=== PATIENT | male | born 1955 | race Caucasian/White ===

== ENCOUNTER → 2021-12-23 | Outpatient (CLI) | payer MEDICARE | LOC: M.ULTRA 09:34 | PROVIDERS: ATTEND Nurse Practitioner Family | DX: I82.411 Acute embolism and thrombosis of right femoral vein (principal); I82.431 Acute embolism and thrombosis of right popliteal vein; I82.441 Acute embolism and thrombosis of right tibial vein; I82.451 Acute embolism and thrombosis of right peroneal vein ==

== ENCOUNTER 2022-01-06 09:53 | Inpatient (IN) | payer MEDICARE ==
[~2022-01-06] VITALS: Ht 190.5 cm; Wt 104.3 kg
[2022-01-06 09:59] VITALS: BP 153/75
[2022-01-06 10:20] LABS: HEMOGLOBIN 14.5 gm/dL (14.0-18.0); MCH 30.8 pg (26.0-34.0); MCHC 33.1 g/dL (28.0-37.0); MCV 93.1 fL (80.0-100.0); MPV 9.4 fl. (7.2-11.1); NUCLEATED RBCS 0 /100WBC; PLATELET COUNT* 314 thou/uL (150-400); RBC 4.72 mil/uL (4.50-6.00); RDW-CV 12.4 % (10.5-14.5); WBC 14.6 thou/uL (4.0-11.0)
[2022-01-06 10:24] LABS: CALCIUM 8.8 mg/dL (8.5-10.1); CREATININE 0.9 mg/dL (0.6-1.3)
[2022-01-06 10:29] LABS: ALBUMIN 3.2 g/dL (3.4-5.0); TOTAL BILIRUBIN 0.5 mg/dL (<0.1-1.0); TOTAL PROTEIN 7.5 g/dL (6.4-8.2)
[2022-01-06 11:10] LABS: ABSOLUTE LYMPHOCYTES 1.6 thou/uL (0.8-5.3); ABSOLUTE MONOCYTES 0.9 thou/uL (0.0-1.2); ABSOLUTE NEUTROPHILS 12.1 thou/uL (1.6-8.1); PLATELET ESTIMATE ADEQUATE
[2022-01-06 11:12] LABS: APTT 28.8 Seconds (25.0-31.3); INR 1.2; PROTIME 12.2 Seconds (9.20-11.50)
--- NOTE | 2022-01-06 11:27 | EKG ---
[place] [address] ELECTROCARDIOGRAM REPORT Name: TERESACATHERINE Room: [facility]#: [id number] Admission: 01/06/22 Attend Phys: Discharge: Date of : 53 Date of Service: 01/06/22 1039 Report #: [id number] THIS REPORT FOR: //name// [facility] ED Test Date: 2022-01-06 Test Time: 10:39:59 Pat Name: CATHERINE MOORE Department: Room: Gender: Director Digital: [facility] : 1955 Requested By: Mary Jo Coreas Order Number: [id number] MD: Shad Reynoso Measurements Intervals [place] Rate: 60 P: 0 OR: 55 QRS: -56 QRSD: 171 T: 114 QT: 470 QTc: 470 Interpretive Statements Ventricular-paced rhythm No further analysis attempted due to paced rhythm Compared to ECG 11/02/2006 10:59:07 Atrial fibrillation no longer present Rhythm is exclusively paced Electronically Signed On 01-06-2022 11:27:14 FLOOR AND WALL APPLIER LIQUID by Shad Reynoso [email or web address] <ELECTRONICALLY SIGNED> By: Shad Reynoso MD, [facility] 01/06/22 1127 1039 1039 Shad Reynoso MD, [facility] /EPI
[2022-01-06 13:00] VITALS: BP 170/80
[2022-01-06] MEDS ORDERED: CARVEDILOL12.5 MG PO (16:28)
[2022-01-06] MEDS ORDERED: COZAAR 50 MG TA50 M1 PO (16:28)
[2022-01-06] MEDS ORDERED: FUROSEMIDE 40 M40 M1 PO (16:29)
[2022-01-06 17:00] VITALS: BP 174/83
--- NOTE | 2022-01-06 18:50 | NUR ---
SPOKE WITH PHARMACY REGARDING VANCOMYCIN. PER PHARMACY, GIVE VANCOMYCIN AT 1900 AND 2100 BECAUSE PT NEEDS 2G LOADING DOSE BASED ON WEIGHT.
[2022-01-06 21:00] VITALS: BP 179/86
[2022-01-06 23:55] VITALS: BP 179/86
[2022-01-07] VITALS (13 sets, daily range): BP systolic 127–194; BP diastolic 53–89
--- NOTE | 2022-01-07 06:30 | NUR ---
PT TO ROOM AT 0020. PICTURES TAKEN OF RT FOOT. AREA RED, INFLAMMED AND LITTLE TOE WITH DRAINAGE AREA. REFUSING TO ELEVATE. STANDS TO VOID. IV PAIN MED GIVEN X1 WITH RELIEF. NPO FOR PROCEDURE THIS AM.
[2022-01-07 07:27] LABS: CALCIUM 8.4 mg/dL (8.5-10.1); CREATININE 0.9 mg/dL (0.6-1.3); POTASSIUM 3.9 mmol/L (3.5-5.1)
[2022-01-07 07:30] LABS: MAGNESIUM 2.3 mg/dL (1.8-2.4); PHOSPHORUS* 2.7 mg/dL (2.5-4.9)
--- NOTE | 2022-01-07 15:31 | NUR ---
CM ASSESSMENT ASSESSMENT COMPLETED WITH PT WHO WAS ALERT AND ORIENTED. PT LIVES ALONE IN SINGLE STORY HOME. PT IND WITH ADLS. PT DOES NOT USE ANY DME OR HOME 02. PT HAS NO HX OF SNF, ARU, OR HH. PT REPORTS PCP IS "YMAIL" FROM [facility]. PT SEEKING TO DC HOME WHEN MED CLEAR WITH HH. CM TO FOLLOW.
[2022-01-07 18:25] LABS: ABSOLUTE EOSINOPHILS 0.2 thou/uL (0.0-0.7); ABSOLUTE LYMPHOCYTES 1.3 thou/uL (0.8-5.3); ABSOLUTE MONOCYTES 1.1 thou/uL (0.0-1.2); ABSOLUTE NEUTROPHILS 8.8 thou/uL (1.6-8.1); BASOPHILS 0.2 %; EOSINOPHILS 1.4 %; HEMATOCRIT 44.7 % (42.0-52.0); HEMOGLOBIN 14.7 gm/dL (14.0-18.0); LYMPHOCYTES 11.7 %; MCH 30.8 pg (26.0-34.0); MCV 93.6 fL (80.0-100.0); MONOCYTES 9.5 %; MPV 8.8 fl. (7.2-11.1); NUCLEATED RBCS 0 /100WBC; PLATELET COUNT* 305 thou/uL (150-400); POLYS 77.2 %; RBC 4.78 mil/uL (4.50-6.00); RDW-CV 12.6 % (10.5-14.5); WBC 11.4 thou/uL (4.0-11.0)
[2022-01-07 18:43] LABS: PROTIME 21.1 Seconds (9.20-11.50)
[2022-01-07 18:46] LABS: INR 2.1
[2022-01-07 18:56] LABS: APTT > 139.0 Seconds (25.0-31.3)
[2022-01-08 00:48] VITALS: BP 152/58
--- NOTE | 2022-01-08 02:04 | NUR ---
PT ALERT, ORIENTED, IMPULSIVE AND FORGETFUL AT TIMES. BED REST UNTIL 2100. HEPARIN QTT STARTED. NS RESTARTED PER MAR. IVORY WITH CLEAR YELLOW. MANAGER TRADE MARKETING TRACING AFIB WITH PVCS AND V-PACED.
[2022-01-08 02:06] LABS: GLYCOHEMOGLOBIN (HGB A1C) 6.2 % (4.8-5.6)
[2022-01-08 04:46] VITALS: BP 150/66
[2022-01-08 05:07] LABS: ABSOLUTE BASOPHILS 0.1 thou/uL (0.0-0.2); ABSOLUTE EOSINOPHILS 0.2 thou/uL (0.0-0.7); ABSOLUTE LYMPHOCYTES 1.9 thou/uL (0.8-5.3); ABSOLUTE MONOCYTES 0.9 thou/uL (0.0-1.2); ABSOLUTE NEUTROPHILS 7.2 thou/uL (1.6-8.1); BASOPHILS 0.8 %; EOSINOPHILS 2.4 %; HEMATOCRIT 40.8 % (42.0-52.0); HEMOGLOBIN 13.9 gm/dL (14.0-18.0); LYMPHOCYTES 18.4 %; MCH 31.5 pg (26.0-34.0); MCV 92.7 fL (80.0-100.0); MPV 8.7 fl. (7.2-11.1); NUCLEATED RBCS 0 /100WBC; PLATELET COUNT* 268 thou/uL (150-400); POLYS 69.4 %; RDW-CV 12.5 % (10.5-14.5); WBC 10.4 thou/uL (4.0-11.0)
[2022-01-08 09:00] VITALS: BP 113/67
[2022-01-08 12:00] VITALS: BP 94/44
--- NOTE | 2022-01-08 15:40 | NUR ---
PLAN OF CARE: PLAN FOR THE PT TO POSSIBLY D/C HOME WITH IV ABT'S AND HH PENDING ID CONSULT AND RECOMMENDATIONS, AND WHEN MEDICALLY STABLE. CM FAXED PT'S CLINCIAL INFO TO [employer] TO GET PT'S INSURANCE COVERAGE AND CO-PAY AMT FOR HOME IV ABT INFUSIONS. CM AWAITING A RETURN CALL FROM [employer]. CM WILL REMAIN AVAILABLE TO ASSIST AND FOLLOW NEEDED.
[2022-01-08 16:00] VITALS: BP 139/63
[2022-01-08 20:00] VITALS: BP 158/60
[2022-01-09 01:16] VITALS: BP 152/62
[2022-01-09 04:36] VITALS: BP 166/70
[2022-01-09 08:00] VITALS: BP 165/75
--- NOTE | 2022-01-09 11:17 | EKG ---
[place] [address] ELECTROCARDIOGRAM REPORT Name: CATHERINE MOORE Room: [address] ADM IN M.R.#: [id number] Admission: 01/06/22 Attend Phys: Brian Hinojosa Discharge: Date of : 53 Date of Service: 01/08/22 1226 Report #: [id number] THIS REPORT FOR: //name// [facility] Test Date: 2022-01-08 Test Time: 12:26:36 Pat Name: CATHERINE MOORE Department: Room: [address] Gender: M Plastics Factory Worker: ANDREEA : 1955 Requested By: Brian Hinojosa Order Number: [id number] MD: Shad Reynoso Measurements Intervals [place] Rate: 60 P: [place]: QRS: -56 QRSD: 170 T: 121 QT: 471 QTc: 471 Interpretive Statements Afib/flut and V-paced complexes; rare PVC is noted No further analysis attempted due to paced rhythm Compared to ECG 01/06/2022 10:39:59 Rare PVC is noted Electronically Signed On 01-09-2022 11:17:46 NURSE ADVISOR by Shad Reynoso [email or web address] <ELECTRONICALLY SIGNED> By: Shad Reynoso MD, [facility] 01/09/22 1117 1226 1226 Shad Reynoso MD, [facility] /EPI
[2022-01-09 12:00] VITALS: BP 153/66
[2022-01-09] MEDS ORDERED: OXYCODONE HCL 55 MG PO ×2 (12:14→12:21)
[2022-01-09] MEDS ORDERED: CEPHALEXIN500 MG PO ×2 (12:14→12:21)
[2022-01-09] MEDS ORDERED: XARELTO10 M1 PO (12:20)
--- NOTE | 2022-01-09 13:45 | NUR ---
PLAN OF CARE: PLAN FOR THE PT TO D/C HOME WITH SELF-CARE PENDING I.D. RECOMMENDAITONS. CM WILL REMAIN AVAILABLE TO ASSIST AND FOLLOW NEEDED.
--- NOTE | 2022-01-09 15:10 | NUR ---
Man catheter dc'd at 1330. PATIENT TOLERATED WELL. WILL REVIEW DISCHARGE INSTRUCTIONS WITH DAUGHTER IN LAW IN ROOM.
[2022-01-09 15:11] VITALS: BP 153/66
--- NOTE | 2022-01-09 16:06 | NUR ---
REVIEWED DISCHARGE INSTRUCTIONS WITH PATIENT AND FAMILY. VERBALIZED UNDERSTANDING. PATIENT LEAVES VIA WHEELCHAIR TO LOBBY IN STABLE CONDITION.
== END 2022-01-09 16:11 | disposition home or self-care (01) | DRG 271 ==
LOC: M.ERS 09:53 → M.TBA-ER 12:15 → M.2W 12:15
PROVIDERS: Radiology Diagnostic Radiology; Student in an Organized Health Care Education/Training Program; ADMIT Internal Medicine; ATTEND Internal Medicine
PROC: 04CK3ZZ Extirpation of Matter from Right Femoral Artery, Percutaneous Approach (ICD-10-PCS; principal; 2022-01-08)
PROC: B41G1ZZ Fluoroscopy of Left Lower Extremity Arteries using Low Osmolar Contrast (ICD-10-PCS; principal; 2022-01-08)
PROC: 047M3ZZ Dilation of Right Popliteal Artery, Percutaneous Approach (ICD-10-PCS; principal; 2022-01-08)
PROC: 047P3ZZ Dilation of Right Anterior Tibial Artery, Percutaneous Approach (ICD-10-PCS; principal; 2022-01-08)
PROC: B41F1ZZ Fluoroscopy of Right Lower Extremity Arteries using Low Osmolar Contrast (ICD-10-PCS; principal; 2022-01-08)
PROC: 04CP3ZZ Extirpation of Matter from Right Anterior Tibial Artery, Percutaneous Approach (ICD-10-PCS; principal; 2022-01-08)
PROC: 047K3ZZ Dilation of Right Femoral Artery, Percutaneous Approach (ICD-10-PCS; principal; 2022-01-08)
PROC: B4101ZZ Fluoroscopy of Abdominal Aorta using Low Osmolar Contrast (ICD-10-PCS; principal; 2022-01-08)
DX: I70.261 Atherosclerosis of native arteries of extremities with gangrene, right leg (principal); I82.411 Acute embolism and thrombosis of right femoral vein; R65.10 Systemic inflammatory response syndrome (SIRS) of non-infectious origin without acute organ dysfunction; E87.2 Acidosis; I48.20 Chronic atrial fibrillation, unspecified; E44.1 Mild protein-calorie malnutrition; I82.451 Acute embolism and thrombosis of right peroneal vein; I82.431 Acute embolism and thrombosis of right popliteal vein; I82.441 Acute embolism and thrombosis of right tibial vein; L03.031 Cellulitis of right toe; I77.1 Stricture of artery; I10 Essential (primary) hypertension; D72.829 Elevated white blood cell count, unspecified; R73.9 Hyperglycemia, unspecified; I25.10 Atherosclerotic heart disease of native coronary artery without angina pectoris; S90.821A Blister (nonthermal), right foot, initial encounter; Z20.822 Contact with and (suspected) exposure to COVID-19; Z68.28 Body mass index [BMI] 28.0-28.9, adult; I25.2 Old myocardial infarction; Z95.0 Presence of cardiac pacemaker; Z86.73 Personal history of transient ischemic attack (TIA), and cerebral infarction without residual deficits; X58.XXXA Exposure to other specified factors, initial encounter; Y93.89 Activity, other specified; Y92.89 Other specified places as the place of occurrence of the external cause; Y99.8 Other external cause status

== ENCOUNTER 2022-01-22 10:25 | Inpatient (IN) | payer MEDICARE ==
[~2022-01-22] VITALS: Ht 190.5 cm; Wt 104.3 kg
[~2022-01-22 10:25] MED LIST: CARVEDILOL12.5 MG PO; CEPHALEXIN500 MG PO; COZAAR 50 MG TA50 M1 PO; FUROSEMIDE 40 M40 M1 PO; OXYCODONE HCL 55 MG PO; XARELTO10 M1 PO
[2022-01-22 10:36] VITALS: BP 147/62
[2022-01-22 11:29] LABS: ABSOLUTE BASOPHILS 0.1 thou/uL (0.0-0.2); ABSOLUTE EOSINOPHILS 0.3 thou/uL (0.0-0.7); ABSOLUTE LYMPHOCYTES 1.7 thou/uL (0.8-5.3); ABSOLUTE NEUTROPHILS 7.6 thou/uL (1.6-8.1); BASOPHILS 0.9 %; EOSINOPHILS 3.1 %; HEMATOCRIT 38.6 % (42.0-52.0); LYMPHOCYTES 16.3 %; MCH 30.8 pg (26.0-34.0); MCHC 33.8 g/dL (28.0-37.0); MCV 91.1 fL (80.0-100.0); MONOCYTES 9.3 %; MPV 9.7 fl. (7.2-11.1); NUCLEATED RBCS 0 /100WBC; PLATELET COUNT* 287 thou/uL (150-400); POLYS 70.4 %; RBC 4.24 mil/uL (4.50-6.00); RDW-CV 12.6 % (10.5-14.5); WBC 10.7 thou/uL (4.0-11.0)
[2022-01-22 11:34] LABS: CREATININE 3.1 mg/dL (0.6-1.3); POTASSIUM 3.6 mmol/L (3.5-5.1)
[2022-01-22 11:37] LABS: APTT 35.7 Seconds (25.0-31.3); INR 1.5; PROTIME 15.2 Seconds (9.20-11.50)
[2022-01-22 11:39] LABS: TOTAL BILIRUBIN 0.8 mg/dL (<0.1-1.0); TOTAL PROTEIN 7.4 g/dL (6.4-8.2)
[2022-01-22 12:35] LABS: ESR (SEDRATE) 65 mm/hr (0-20)
--- NOTE | 2022-01-22 12:49 | EKG ---
[place] [address] ELECTROCARDIOGRAM REPORT Name: CATHERINE MOOREMOND Room: [place] [address] [facility]#: [id number] Admission: 01/22/22 Attend Phys: Mishel Celestin, Discharge: Date of : 53 Date of Service: 01/22/22 1120 Report #: [id number] THIS REPORT FOR: //name// [facility] ED Test Date: 2022-01-22 Test Time: 11:20:17 Pat Name: CATHERINE MOORE Department: Room: [facility] Gender: M Word Processor Operator: : 1955 Requested By: Mary Jo Coreas Order Number: [id number] MD: Shad Reynoso Measurements Intervals [place] Rate: 60 P: 0 VA: 65 QRS: -52 QRSD: 173 T: 107 QT: 517 QTc: 517 Interpretive Statements Ventricular-paced rhythm No further analysis attempted due to paced rhythm Compared to ECG 01/08/2022 12:26:36 Ventricular premature complex(es) no longer present Electronically Signed On 01-22-2022 12:49:38 ELEVATOR SUPERVISOR by Shad Reynoso [email or web address] <ELECTRONICALLY SIGNED> By: Shad Reynoso MD, [facility] 01/22/22 1249 1120 1120 Shad Reynoso MD, [facility] /EPI
[2022-01-22 14:13] VITALS: BP 147/64
[2022-01-22 14:27] LABS: CALCIUM 8.5 mg/dL (8.5-10.1); CREATININE 2.9 mg/dL (0.6-1.3); POTASSIUM 3.5 mmol/L (3.5-5.1)
[2022-01-22 14:35] VITALS: BP 158/75
--- NOTE | 2022-01-22 15:34 | 2DMMODE ---
[place] [address] 2 D/M-MODE ECHOCARDIOGRAM Name: CATHERINE MOORE Room: [address] IN [facility]#: [id number] Admission: 01/22/22 Attend Phys: Mishel Celestin, Discharge: Date of : 53 Date of Service: 01/22/22 1534 Report #: [id number] THIS REPORT FOR: cc: Taylor English NP, Elizabeth NP Holkins,Shad Cervantes MD [facility] ~ APPROVED REPORT Study performed: 01/22/2022 15:01:14 EXAM: Comprehensive 2D, Doppler, and color-flow Echocardiogram Patient Location: In-Patient Room #: [facility] Status: routine BSA: 2.29 HR: 60 bpm BP: 147/64 mmHg Rhythm: NSR Other Information Study Quality: Good Indications CAD 2D Dimensions IVSd: 14.16 (7-11mm) LVOT Diam: 22.92 (18-24mm) LVDd: 45.16 mm PWd: 12.33 (7-11mm) Ascending Ao: 33.64 (22-36mm) LVDs: 22.93 (25-40mm) Aortic Root: 35.56 mm Volumes Left Atrial Volume (Systole) LA ESV Index: 68.40 mL/m2 Aortic Valve AoV Peak Gordo.: 1.41 m/s AO Peak Gr.: 7.90 mmHg LVOT Max P.86 mmHg AO Mean Gr.: 4.68 mmHg LVOT Mean P.12 mmHg LVOT Max V: 1.10 m/s AO V2 VTI: 24.73 cm LVOT Mean V: 0.65 m/s NADYA (VTI): 3.19 cm2 LVOT V1 VTI: 19.10 [place] [address] 2 D/M-MODE ECHOCARDIOGRAM Name: CATHERINE MOORE Room: [address] IN ..#: [id number] Admission: 01/22/22 Attend Phys: Mishel Celestin, Discharge: Date of : 53 Date of Service: 01/22/22 1534 Report #: [id number] TDI Medial E' Gordo.: 0.10 m/s Lateral E' Gordo.: 0.11 m/s Pulmonary Valve PV Peak Gordo.: 1.08 m/s PV Peak Gr.: 4.63 mmHg Tricuspid Valve RAP Estimate: 5.00 mmHg TR Peak Gr.: 27.62 mmHg RVSP: 32.00 mmHg PA Pressure: 32.00 mmHg Left Ventricle The left ventricle is normal size. There is normal LV segmental wall motion. Mild concentric left ventricular hypertrophy. Left ventricular systolic function is normal. The left ventricular ejection fraction is within the normal range. LVEF is 60-65%. This study is not technically sufficient to allow evaluation of the LV diastolic function. Right Ventricle Right ventricle is mildly dilated. The right ventricular systolic function is normal. Right heart pacing catheter is noted Atria Left atrium is moderately dilated. Right atrium is mildly dilated. Aortic Valve Mild aortic valve sclerosis. Trace aortic regurgitation. There is no aortic valvular stenosis. Mitral Valve Mild mitral annular calcification. Trace mitral regurgitation. No evidence of mitral valve stenosis. Tricuspid Valve The tricuspid valve is normal in structure. Trace tricuspid regurgitation. Mild pulmonary hypertension. Pulmonic Valve The pulmonary valve is normal in structure. There is no pulmonic valvular regurgitation. Great Vessels The aortic root is normal in size. IVC is [place] [address] 2 D/M-MODE ECHOCARDIOGRAM Name: TERESACATHERINE Room: [address] IN [facility]#: [id number] Admission: 01/22/22 Attend Phys: Mishel Celestin, Discharge: Date of : 53 Date of Service: 01/22/22 1534 Report #: [id number] collapses >50% with inspiration. Pericardium There is no pericardial effusion. <Conclusion> The left ventricle is normal size. Mild concentric left ventricular hypertrophy. Left ventricular systolic function is normal. The left ventricular ejection fraction is within the normal range. LVEF is 60-65%. Right ventricle is mildly dilated. Left atrium is moderately dilated. Right atrium is mildly dilated. Mild aortic valve sclerosis. Trace aortic regurgitation. There is no aortic valvular stenosis. Mild mitral annular calcification. Trace mitral regurgitation. The tricuspid valve is normal in structure. Trace tricuspid regurgitation. Mild pulmonary hypertension. IVC is normal in size and collapses >50% with inspiration. There is no pericardial effusion. There is normal LV segmental wall motion. Right heart pacing catheter is noted <ELECTRONICALLY SIGNED> By: Shad Reynoso MD, [facility] 01/22/22 1534 1534 1534 Shad Reynoso MD, [facility] /INF
[2022-01-22 20:00] VITALS: BP 139/55
[2022-01-23] VITALS: BP 133/64
[2022-01-23 02:06] LABS: GLYCOHEMOGLOBIN (HGB A1C) 6.2 % (4.8-5.6)
[2022-01-23 04:57] LABS: HEMATOCRIT 38.6 % (42.0-52.0); HEMOGLOBIN 12.7 gm/dL (14.0-18.0); MCH 30.6 pg (26.0-34.0); MCHC 32.8 g/dL (28.0-37.0); MCV 93.5 fL (80.0-100.0); MPV 10.3 fl. (7.2-11.1); RBC 4.13 mil/uL (4.50-6.00); RDW-CV 12.9 % (10.5-14.5); WBC 10.7 thou/uL (4.0-11.0)
[2022-01-23 05:28] LABS: ALBUMIN 2.7 g/dL (3.4-5.0); CALCIUM 8.8 mg/dL (8.5-10.1); CREATININE 2.7 mg/dL (0.6-1.3); POTASSIUM 4.3 mmol/L (3.5-5.1); TOTAL BILIRUBIN 0.7 mg/dL (<0.1-1.0); TOTAL PROTEIN 7.1 g/dL (6.4-8.2)
--- NOTE | 2022-01-23 09:32 | EKG ---
[place] [address] ELECTROCARDIOGRAM REPORT Name: CATHERINE MOORE HELEN Room: [address] ADM IN M.R.#: [id number] Admission: 01/22/22 Attend Phys: Mishel Celestin, Discharge: Date of : 53 Date of Service: 01/23/2219 Report #: [id number] THIS REPORT FOR: //name// [facility] [place] [facility] Test Date: 2022-01-23 Test Time: 07:19:06 Pat Name: CATHERINE MOORE Department: Room: [address] Gender: M Architectural Intern: : 1955 Requested By: Bhavesh Sharp Order Number: [id number] MD: Shad Reynoso Measurements Intervals [place] Rate: 60 P: [place]: QRS: -48 QRSD: 182 T: 115 QT: 471 QTc: 471 Interpretive Statements Afib and V-paced complexes No further analysis attempted due to paced rhythm Compared to ECG 01/22/2022 11:20:17 No significant changes Electronically Signed On 01-23-2022 9:32:10 WORM PICKER by Shad Reynoso [email or web address] <ELECTRONICALLY SIGNED> By: Shad Reynoso MD, [facility] 01/23/22 0932 8 8 Shad Reynoso MD, [facility] /EPI
[2022-01-23 12:25] VITALS: BP 116/65
[2022-01-23 17:45] VITALS: BP 165/72
[2022-01-23 21:40] VITALS: BP 178/74
[2022-01-24] VITALS (7 sets, daily range): BP systolic 133–185; BP diastolic 67–79
[2022-01-24 05:04] LABS: CALCIUM 8.6 mg/dL (8.5-10.1); CREATININE 2.3 mg/dL (0.6-1.3); POTASSIUM 3.5 mmol/L (3.5-5.1)
--- NOTE | 2022-01-24 08:54 | CON ---
[address] [address] CONSULTATION Name: CATHERINE MOORE Room: [address] IN .R.#: [id number] Admission: 01/22/22 Attend Phys: Mishel Celestin MD Discharge: Date of : 53 Report #: [id number] THIS REPORT FOR: cc: Taylor English NP, Elizabeth NP Arakelov, Alexandr V. MD ~ DATE OF CONSULTATION: 01/23/2022 REQUESTING PHYSICIAN: Fawad. REASON FOR CONSULTATION: Acute kidney injury. HISTORY OF PRESENT ILLNESS: The patient is a 66-year-old gentleman admitted to the hospital on 01/22/2022 with progressive problem gangrene of the right foot cellulitis. He was examined by specialists and plan is probably to proceed with surgery with amputation of some toes of the right foot. I was consulted because his creatinine went upto 3.1, and it was normal in the past. PAST MEDICAL HISTORY: Chronic atrial fibrillation, peripheral artery disease, hypertension, coronary artery disease. SOCIAL HISTORY: Tobaccoism in the past. FAMILY HISTORY: Negative for renal disease. MEDICATIONS: Prior to admission included Coreg and losartan. Here in the hospital, he is on vancomycin and Coreg. His losartan was appropriately stopped. REVIEW OF SYSTEMS: Positive for some discomfort in his right foot. Denies shortness of breath. Denies nausea, vomiting, diarrhea or constipation. PHYSICAL EXAMINATION: GENERAL: Awake, alert, oriented, very pleasant gentleman in no acute distress. VITAL SIGNS: Blood pressure 110/68, heart rate 61 and irregular, respirations 19, temperature 37.1 Celsius. HEENT: Pupils are round. NECK: Supple. Skin is dry. LUNGS: Clear to auscultation bilaterally. CARDIOVASCULAR: Irregular rate. ABDOMEN: Soft. EXTREMITIES: His right foot is dressed. LABORATORY DATA: Significant for creatinine 2.7 today, down from 3.1 on admission. Potassium 4.3[place] [address] CONSULTATION Name: CATHERINE MOORE Room: [address] IN [facility]#: [id number] Admission: 01/22/22 Attend Phys: Mishel Celestin MD Discharge: Date of : 53 Report #: [id number] ASSESSMENT: 1. Acute kidney injury, likely due to infection. 2. Right foot cellulitis with some gangrene and no flow to his right foot. 3. Atrial fibrillation. 4. History of hypertension. PLAN: 1. Agree with stopping losartan. 2. Agree with IV fluids. Overall, his renal functions are slowly improving at this point, we will monitor labs and avoid nephrotoxins. <ELECTRONICALLY SIGNED> By: Austen Berg MD 01/24/22 0854 1038 1432Alexandr Jimy Berg MD /nt
[2022-01-24 18:31] LABS: URINE BILIRUBIN NEGATIVE (Negative); URINE BLOOD NEGATIVE (Negative); URINE CLARITY CLEAR; URINE COLOR YELLOW; URINE GLUCOSE-RANDOM NEGATIVE (Negative); URINE KETONES NEGATIVE (Negative); URINE LEUKOCYTES-REFLEX NEGATIVE (Negative); URINE NITRITE-REFLEX NEGATIVE (Negative); URINE PROTEIN NEGATIVE (Negative); URINE SPECIFIC GRAVITY 1.025 (1.005-1.030); URINE UROBILINOGEN 0.2 E.U./dl (0.2-1.0)
[2022-01-25] VITALS: BP 162/71
[2022-01-25 04:51] VITALS: BP 181/76
[2022-01-25 07:45] VITALS: BP 204/77
[2022-01-25 11:46] VITALS: BP 169/78
[2022-01-25 11:53] LABS: ABSOLUTE BASOPHILS 0.1 thou/uL (0.0-0.2); ABSOLUTE EOSINOPHILS 0.4 thou/uL (0.0-0.7); ABSOLUTE LYMPHOCYTES 1.4 thou/uL (0.8-5.3); ABSOLUTE MONOCYTES 0.7 thou/uL (0.0-1.2); ABSOLUTE NEUTROPHILS 5.7 thou/uL (1.6-8.1); BASOPHILS 0.8 %; EOSINOPHILS 5.2 %; HEMATOCRIT 34.5 % (42.0-52.0); HEMOGLOBIN 11.6 gm/dL (14.0-18.0); LYMPHOCYTES 16.4 %; MCH 30.6 pg (26.0-34.0); MCHC 33.6 g/dL (28.0-37.0); MCV 91.1 fL (80.0-100.0); MONOCYTES 8.8 %; MPV 10.2 fl. (7.2-11.1); NUCLEATED RBCS 0 /100WBC; PLATELET COUNT* 227 thou/uL (150-400); POLYS 68.8 %; RBC 3.78 mil/uL (4.50-6.00); WBC 8.3 thou/uL (4.0-11.0)
[2022-01-25 12:04] LABS: ALBUMIN 2.6 g/dL (3.4-5.0); CALCIUM 8.3 mg/dL (8.5-10.1); CREATININE 2.1 mg/dL (0.6-1.3); POTASSIUM 3.8 mmol/L (3.5-5.1); TOTAL BILIRUBIN 0.5 mg/dL (<0.1-1.0); TOTAL PROTEIN 6.7 g/dL (6.4-8.2)
[2022-01-25 16:00] VITALS: BP 189/86
[2022-01-25 20:41] VITALS: BP 210/82
[2022-01-26] VITALS (7 sets, daily range): BP systolic 154–208; BP diastolic 61–77
[2022-01-26 05:10] LABS: ABSOLUTE BASOPHILS 0.1 thou/uL (0.0-0.2); ABSOLUTE EOSINOPHILS 0.5 thou/uL (0.0-0.7); ABSOLUTE LYMPHOCYTES 1.7 thou/uL (0.8-5.3); ABSOLUTE MONOCYTES 0.8 thou/uL (0.0-1.2); ABSOLUTE NEUTROPHILS 5.2 thou/uL (1.6-8.1); BASOPHILS 1.1 %; EOSINOPHILS 5.8 %; HEMATOCRIT 33.3 % (42.0-52.0); HEMOGLOBIN 11.1 gm/dL (14.0-18.0); LYMPHOCYTES 20.9 %; MCH 30.3 pg (26.0-34.0); MCHC 33.4 g/dL (28.0-37.0); MCV 90.7 fL (80.0-100.0); MONOCYTES 9.6 %; MPV 9.9 fl. (7.2-11.1); NUCLEATED RBCS 0 /100WBC; PLATELET COUNT* 220 thou/uL (150-400); POLYS 62.6 %; RBC 3.67 mil/uL (4.50-6.00); RDW-CV 12.8 % (10.5-14.5); WBC 8.3 thou/uL (4.0-11.0)
[2022-01-26 05:34] LABS: ALBUMIN 2.5 g/dL (3.4-5.0); CALCIUM 8.2 mg/dL (8.5-10.1); CREATININE 1.9 mg/dL (0.6-1.3); POTASSIUM 3.2 mmol/L (3.5-5.1); TOTAL BILIRUBIN 0.5 mg/dL (<0.1-1.0); TOTAL PROTEIN 6.4 g/dL (6.4-8.2)
--- NOTE | 2022-01-30 14:09 | PATH ---
[address] [address] PATHOLOGY RPT PROCEDURE Name: CATHERINE VALDEZ Room: [address] IN M.R.#: [id number] Admission: 01/22/22 Date of : 53 Discharge: 01/27/22 Report #: [id number] Path Case #: [id number] [facility] Accession Number: [id number] . 01 Material submitted: . foot - 4TH AND 5TH TOES, RIGHT FOOT. Modifiers: right, fourth, third . 01 Clinical history: . DRY GANGRENE 4TH AND 5TH TOES RIGHT FOOT . 02 Diagnosis: Fourth and fifth toes, right foot: - Two benign, acutely inflamed and necrotic toes including phalangeal bones, with viable proximal disarticulation margins of both. (DEREJE/db; 01/28/2022) LBQ 01/29/2022 1646 Local . 02 Electronically signed: . Lukas Arteaga MD, Pathologist NPI- [id number] . 01 Gross description: . The specimen is received in formalin, labeled "Catherine Valdez, 4th and 5th toes" and consists of a two disarticulated amputated digits (4.5 cm in length by 2.1 x 1.3 cm and 5.5 cm in length by 1.9 x 1.8 cm). The shorter digit displays on the distal dorsal and plantar surfaces and extending along the length of the dorsal surface, a purple-blackburn, necrotic lesion (lesion #1, 6.5 x 4.3 cm) that involves the surgical margin (inked black). Sectioning reveals dusky, hemorrhagic and focally softened bone underlying lesion #1. The articular surface at the proximal margin is smooth, hard and unremarkable. . The longer digit displays, involving approximately 90% of the distal digit, a brown-blackburn partially mummified lesion (lesion #2, 7.0 x 5.5 cm) that abuts the surgical margin (inked green). Sectioning reveals pink-red, dusky and focally softened bone underlying the lesion. The articular surface at the proximal margin is smooth, hard and unremarkable. Locker Plant Attendant sections are submitted following decalcification as follows: A1: Proximal margin of shorter digit to show proximity to lesion #1, submitted on edge, represented A2: Lengthwise section of proximal margin of both digits, submitted on edge, represented A3: Cross sections of shorter digit to show lesion #1 and underlying bone, represented A4: Proximal margin of longer digit to show proximity to lesion #2, submitted on edge, represented A5: Cross sections of longer digit to show lesion #2 and underlying bone, [place] [address] PATHOLOGY RPT PROCEDURE Name: CATHERINE VALDEZ Room: [address] IN M.R.#: [id number] Admission: 01/22/22 Date of : 53 Discharge: 01/27/22 Report #: [id number] Path Case #: [id number] represented ([facility]; 01/27/2022) DKA/DKA 01/28/2022 [facility]7 Local . 02 Pathologist provided ICD-10: I96 . 02 CPT . 654573, 921961 Specimen Comment: A courtesy copy of this report has been sent to [phone] Specimen Comment: [phone], Specimen Comment: Report sent to , DR MILLS / DR PRASAD Specimen Comment: A duplicate report has been generated due to demographic updates. Performed at: 01 [facility] [address], [place] [id number] MD Ilir Peñaloza MD Phone: [phone] Performed at: 02 [facility] [address], [place], [place] [id number] MD Lukas Arteaga MD Phone: [phone]
== END 2022-01-27 | disposition home health service (06) | DRG 239 ==
LOC: M.ERS 10:25 → M.2W 11:19 → M.ORTHSURG 11:19 → M.TBA-ER 11:19 → M.ORTHSURG 14:30 → M.2W 16:48
PROVIDERS: Internal Medicine; Internal Medicine Nephrology; Student in an Organized Health Care Education/Training Program; ADMIT Internal Medicine; ATTEND Internal Medicine
DX: E11.52 Type 2 diabetes mellitus with diabetic peripheral angiopathy with gangrene (principal); N17.0 Acute kidney failure with tubular necrosis; I96 Gangrene, not elsewhere classified; E44.0 Moderate protein-calorie malnutrition; I48.20 Chronic atrial fibrillation, unspecified; L03.115 Cellulitis of right lower limb; I48.21 Permanent atrial fibrillation; Z20.822 Contact with and (suspected) exposure to COVID-19; I10 Essential (primary) hypertension; I25.10 Atherosclerotic heart disease of native coronary artery without angina pectoris; E11.65 Type 2 diabetes mellitus with hyperglycemia; R63.4 Abnormal weight loss; Z68.28 Body mass index [BMI] 28.0-28.9, adult; I25.2 Old myocardial infarction; Z95.0 Presence of cardiac pacemaker; Z87.11 Personal history of peptic ulcer disease; Z86.718 Personal history of other venous thrombosis and embolism